=== PATIENT | male | born 1955 | race Two or more races ===

== ENCOUNTER 2018-10-20 04:23 | Emergency (ER) | payer OTHER ==
[~2018-10-20] VITALS: Ht 170.2 cm; Wt 63.5 kg
== END 2018-10-20 11:12 | disposition left against medical advice (07) ==
LOC: ER 04:23
DX: S51.022A Laceration with foreign body of left elbow, initial encounter (principal); S61.421A Laceration with foreign body of right hand, initial encounter; S50.312A Abrasion of left elbow, initial encounter; S60.511A Abrasion of right hand, initial encounter; Y04.1XXA Assault by human bite, initial encounter; Y93.89 Activity, other specified; Y92.89 Other specified places as the place of occurrence of the external cause; Y99.8 Other external cause status